=== PATIENT | male | born 1950 | race American Indian/Alaskan Native ===

== ENCOUNTER 2020-04-18 08:26 | Day surgery (SDC) | payer MEDICARE, OTHER ==
[~2020-04-18 08:26] MED LIST: SODIUM CHLORIDE 0.9% 1000 ML 1,000 ML IV SCH
[2020-04-18] MEDS ORDERED: LIDOCAINE MPF (2%) 20 MG/1 ML VIAL 5 ML ONE (09:00)
--- NOTE | 2020-04-18 10:47 | Anesthesia Day of Surgery ---
Anesthesia Day of Surgery - Day of Surgery Patient Examined: Yes Patient H&P Reviewed: Yes Patient is NPO: Yes
--- NOTE | 2020-04-18 10:47 | Anesthesia Consultation ---
Anesthesia Consult and Med Hx Date of service: 04/18/20 - Airway Anesthetic Teeth Evaluation: Poor ROM Head & Neck: Adequate Mental/Hyoid Distance: Adequate Mallampati Class: Class II Intubation Access Assessment: Probably Good - Pulmonary Exam CTA: Yes - Cardiac Exam Cardiac Exam: RRR - Pre-Operative Health Status ASA Pre-Surgery Classification: ASA4 Proposed Anesthetic Plan: MAC - Pulmonary Hx Smoking: Yes (quit 20 yrs ago) COPD: Yes Home Oxygen Therapy: Yes (2-3L prn) - Cardiovascular System Hx Hypertension: No Hx Coronary Artery Disease: Yes Hx Percutaneous Transluminal Coronary Angioplasty (PTCA): Yes (placed 2019. Off effient x1wk) Hx Cardia Arrhythmia: No - Central Nervous System CVA: No - Endocrine Hx Renal Disease: No Hx Liver Disease: No Hx Insulin Dependent Diabetes: No Hx Non-Insulin Dependent Diabetes: No Hx Thyroid Disease: No - Other Systems Hx Cancer: Yes (hx prostate ca s/p radiation)
[2020-04-18] MEDS ORDERED: propofoL 200 MG/20 ML VIAL IV ONE (11:06)
--- NOTE | 2020-04-18 11:55 | Short Stay Summary ---
Short Stay Documentation Date of service: 04/18/20 Narrative H&P: The patient presents for screening colonoscopy. Last study over 10 years ago. - History Past Medical History: CAD, COPD, hyperlipidemia Past Surgical History: No surgical history Social history: smoking (quit smoking in 1999) - Allergies and Medications Current Medications: Allergies No Known Allergies Allergy (Unverified 09/19/14 10:31) Home Medications Medication Instructions Recorded Confirmed Last Taken Type Albuterol Sulfate 04/17/20 Unknown History Aspirin 04/17/20 Unknown History AtorvaSTATin 04/17/20 Unknown History Lisinopril 04/17/20 Unknown History Methylprednisolone 04/17/20 Unknown History Prasugrel HCl 04/17/20 Unknown History Tamsulosin 04/17/20 Unknown History Tizanidine HCl 04/17/20 Unknown History Trelegy Ellipta 100-62.5-25 04/17/20 Unknown History Active Medications Sodium Chloride (Nacl 0.9% 1000 Ml) 1,000 mls @ 50 mls/hr IV DIRECT JAJA - Physical exam General appearance: no acute distress, well-nourished Integumentary: no rash, no growths, no abnormal pigmentation HEENT: Atraumatic, PERRLA, EOMI, Mucous membr. moist/pink Lungs: Clear to auscultation, Normal air movement Breasts: deferred Heart: Regular rate, Normal S1, Normal S2, No murmurs Gastrointestinal: normoactive bowel sounds, no tenderness, no distended, no masses, no guarding, no organomegaly Male Genitourinary: deferred Rectal Exam: normal exam-external/orifice Extremities: no ischemia, pulses intact, pulses symmetrical, No edema, normal temperature, normal color, Full ROM Neurological: Normal gait, Normal speech, Strength at 5/5 X4 ext, Normal tone, Sensation intact, Cranial nerves 3-12 NL - Brief post op/procedure progress note Date of procedure: 04/18/20 Findings: see dictation Estimated blood loss: none Pathology: none Condition: stable - Disposition Condition at discharge: Good Disposition: DC-01 TO HOME OR SELFCARE - Discharge Diagnoses (1) Colon cancer screening Status: Acute Short Stay Discharge Plan Activity: other (no driving for 24 hours.) Weight Bearing Status: Weight Bear as Tolerated Diet: regular Follow up with: NEVA SANCHEZ [Other] - 7 Days
--- NOTE | 2020-04-18 11:57 | Operative Report ---
Operative Report Operative Report: Date of procedure: 04/18/2020 Preprocedure diagnosis: Colon cancer screening, last study over 10 years ago. Post procedure diagnosis: Normal study Procedure: Colonoscopy to the cecum Endoscopist: Dr. Chacko Anesthesia: Monitored anesthesia care per anesthesia department Estimated blood loss: 0 Medications: Monitored anesthesia care. See separate report by anesthesia for details. After careful discussion of the nature and purpose of the procedure as well as details of the technique risks benefits and alternatives the patient gave consent. Please see recent history and physical from the office. The patient was placed in the left lateral decubitus position and medicated per anesthesia. A rectal exam was performed sphincter tone was normal there were no masses palpable. [employer] 570 scope was passed transanally and advanced under continuous direct vision without difficulty to the cecum. The colon was well prepared. The cecum was normal. The ascending colon was normal and on forward and retroflexed views. The transverse colon, descending colon, and sigmoid colon were normal. The rectum was normal on forward and retroflexed views. The procedure was well-tolerated overall and the patient was observed in recovery. Conclusions: Normal colonoscopy to the cecum. Plan: Repeat colonoscopy in 10 years, if the patient remains in good health. Signed electronically: Ayden Chacko M.D.
--- NOTE | 2020-04-18 12:19 | Post Anesthesia Evaluation ---
- Post Anesthesia Evaluation Patient Participated: Yes Airway Patent: Yes Stable Respiratory Function: Yes Nausea/Vomiting: No Temp > 96.8F: Yes Pain Manageable: Yes Adequeate Hydration: Yes Anesthesia Complications: No
[2020-04-18 12:36] VITALS: BP 142/80
== END 2020-04-18 08:27 | disposition home or self-care (01) ==
LOC: GIO 08:26
PROVIDERS: ATTEND Internal Medicine Gastroenterology
DX: Z12.11 Encounter for screening for malignant neoplasm of colon (principal); I25.10 Atherosclerotic heart disease of native coronary artery without angina pectoris; J44.9 Chronic obstructive pulmonary disease, unspecified; Z85.46 Personal history of malignant neoplasm of prostate; Z79.899 Other long term (current) drug therapy; Z79.82 Long term (current) use of aspirin; Z87.891 Personal history of nicotine dependence
CPT/HCPCS: G0121; J2704; J7030